=== PATIENT | male | born 1960 | race Caucasian/White ===

== ENCOUNTER → 2017-02-01 | Outpatient (CLI) | payer BC ==
--- NOTE | 2017-02-01 16:12 | DI ---
Indication: ITS.REASON: R05 COUGH CHEST, PA LATERAL: Comparison: None Technique: PA and lateral chest Findings: Patient shows normal heart, mediastinum and central vascularity. No acute findings identified in the lungs. Postop changes identified at the cervical thoracic junction. No acute bony findings noted. Impression: No acute cardiopulmonary findings. .
== END ==
LOC: IMA 15:49
PROVIDERS: ATTEND Nurse Practitioner Family
DX: R05 Cough (principal)